=== PATIENT | male | born 1955 | race Caucasian/White ===

== ENCOUNTER 2018-07-16 05:27 | Day surgery (SDC) | payer BC ==
[2018-07-16] MEDS ORDERED: MIDAZOLAM 1 MG/ML 2 ML INJ (07:28)
[2018-07-16] MEDS: ROPIVACAINE 0.5 % 30 ML VIAL (08:45)
[2018-07-16] MEDS ORDERED: PROPOFOL 20 ML (09:10)
[2018-07-16] MEDS ORDERED: ETOMIDATE 20 MG INJ (09:10)
[2018-07-16] MEDS ORDERED: ROCURONIUM 50 MG INJ (09:10)
[2018-07-16] MEDS ORDERED: METOCLOPRAMIDE 10 MG INJ (09:11)
[2018-07-16] MEDS ORDERED: ONDANSETRON 4 MG INJ (09:11)
[2018-07-16] MEDS ORDERED: CEFAZOLIN 1 GM INJ (09:12)
[2018-07-16] MEDS: HYDROmorphONE 1 MG/5 ML IV SYRINGE IV ×3 (09:48→10:23)
[2018-07-16] MEDS ORDERED: LABETALOL HCL 20MG INJ IV (10:00)
[2018-07-16] MEDS ORDERED: FENTAnyl 50 MCG/ML VIAL IV (10:00)
[2018-07-16] MEDS ORDERED: DIPHENHYDRAMINE 50 MG INJ IV (10:00)
[2018-07-16] MEDS ORDERED: MEPERIDINE 25 MG INJ IV (10:00)
[2018-07-16] MEDS ORDERED: ONDANSETRON 4 MG INJ IV ×2 (10:00→10:30)
[2018-07-16] MEDS ORDERED: hydrALAzine 20 MG INJ IV (10:00)
[2018-07-16] MEDS ORDERED: METOCLOPRAMIDE 10 MG INJ IV (10:00)
[2018-07-16] MEDS ORDERED: SOD CHLORIDE 0.9% 1,000 ML IV (10:06)
[2018-07-16] MEDS ORDERED: OXYCODONE/ACETAMINOPHEN (5/325) TAB PO ×2 (10:30)
[2018-07-16] MEDS ORDERED: morphine 2 MG INJ IV (10:30)
== END 2018-07-16 11:30 | disposition home or self-care (01) ==
LOC: SDS 05:27
DX: S83.231A Complex tear of medial meniscus, current injury, right knee, initial encounter (principal); S83.281A Other tear of lateral meniscus, current injury, right knee, initial encounter; X58.XXXA Exposure to other specified factors, initial encounter; M94.261 Chondromalacia, right knee; E11.9 Type 2 diabetes mellitus without complications
CPT/HCPCS: 29880

== ENCOUNTER → 2018-07-20 | Outpatient (CLI) | payer BC | END | disposition home or self-care (01) | LOC: RAD 16:51 | DX: M79.604 Pain in right leg (principal) | CPT/HCPCS: 93971 ==